=== PATIENT | male | born 1990 | race African-American/Black ===

== ENCOUNTER 2020-01-01 18:11 | Inpatient (IN) | payer SELFPAY ==
[~2020-01-01] VITALS: Ht 177.8 cm; Wt 60.4 kg
--- NOTE | 2020-01-01 18:15 | NUR ---
Patient to ER bed 1 to gown for evaluation. Side rails up.
[2020-01-01 18:16] VITALS: BP_SYST 128
--- NOTE | 2020-01-01 18:20 | NUR ---
Patient presented to ER C/O SOB. Patient is awake, alert, and oriented x4. Patient BIB BLS, afebrile, pain 4/10, denies N/V/D, retractions, dyspnea. Patient arrive on blow-by on 15 LPM non-rebreather mask & placed on pulse-ox monitor and gore inserter. Patient reports having cough, nasal congestion x1 day, and shortness of breath today. Patient reports Hx of asthma
--- NOTE | 2020-01-01 18:21 | NUR ---
ER Dr. Carson at bedside examining patient.
[2020-01-01] MEDS ORDERED: IPRATROPIUM/ALBUTEROL SULFATE 3 ML AMPUL.NEB (DUONEB) INH ONE ×3 (18:30→19:30)
[2020-01-01] MEDS ORDERED: NS 500 ML IV ONE (18:30)
[2020-01-01] MEDS ORDERED: MAGNESIUM SULFATE 50 ML IV ONE (18:30)
[2020-01-01] MEDS ORDERED: methylPREDNISolone SOD SUCC/PF 62.5 MG/ML VIAL IVP ONE (18:30)
--- NOTE | 2020-01-01 18:30 | NUR ---
# 20 gauge angiocath placed to right arm. Use of asceptic technique. Opsite placed over site. Blood return noted. Blood for lab drawn from site. Flushed with 10 cc of normal saline. No evidence of infiltration noted. Patient tolerated well.
[2020-01-01] MEDS ORDERED: IPRATROPIUM/ALBUTEROL SULFATE 3 ML AMPUL.NEB (DUONEB) ONE (18:34)
[2020-01-01 18:55] LABS: BASOPHILS % (AUTO) 0.3 % (0.0-2.0); EOSINOPHILS # (AUTO) 0.2 K/uL (0.0-0.4); EOSINOPHILS % (AUTO) 1.9 % (0.0-4.0); HEMATOCRIT 47.2 % (36-54); LYMPHOCYTES # (AUTO) 1.3 K/uL (1.0-5.5); LYMPHOCYTES % (AUTO) 13.9 % (20.5-51.5); MEAN CORPUSCULAR HEMOGLOBIN 27 pg (27-31); MEAN CORPUSCULAR HGB CONC 32 % (32-36); MEAN CORPUSCULAR VOLUME 86 fL (79.0-98.0); MONOCYTES # (AUTO) 0.5 K/uL (0.0-1.0); MONOCYTES % (AUTO) 5.4 % (1.7-9.3); NEUTROPHILS # (AUTO) 7.6 K/uL (1.8-7.7); NEUTROPHILS % (AUTO) 78.5 % (40.0-70.0); PLATELET COUNT (AUTO) 182 K/uL (130-430); RED BLOOD CELL COUNT(AUTO) 5.46 MIL/uL (4.2-6.2); RED CELL DISTRIBUTION WIDTH 15.9 % (9.0-15.0); WHITE BLOOD COUNT (AUTO) 9.7 K/uL (4.8-10.8)
[2020-01-01] MEDS ORDERED: KETOROLAC TROMETHAMINE 15 MG VIAL IVP ONE (19:00)
[2020-01-01 19:08] LABS: CALCIUM 9.3 mg/dL (8.4-11.0); CREATININE 1.04 mg/dL (0.55-1.30); POTASSIUM 3.7 mmol/L (3.5-5.1)
[2020-01-01 19:14] LABS: ALBUMIN 4.3 g/dL (3.4-4.8); TOTAL BILIRUBIN 1.1 mg/dL (0.0-1.0)
[2020-01-01] MEDS ORDERED: ALBUTEROL SULFATE 0.083% 2.5 MG/3 ML VIAL.NEB INH PRN (19:30)
[2020-01-01] MEDS ORDERED: IPRATROPIUM BROM 0.5 MG/2.5 ML VIAL.NEB (ATROVENT) INH PRN (19:30)
--- NOTE | 2020-01-01 19:45 | NUR ---
Report given to Vijay KOVACS
[2020-01-01] MEDS ORDERED: methylPREDNISolone SOD SUCC/PF 62.5 MG/ML VIAL IVP SCH (20:00)
[2020-01-01] MEDS ORDERED: AZITHROMYCIN 500 MG in NS 250 ML IV SCH (20:00)
[2020-01-01] MEDS ORDERED: LORazepam 2 MG/ML VIAL IVP ONE (20:45)
--- NOTE | 2020-01-01 20:45 | NUR ---
Spoke with regarding patient being extremely anxious. issued order for 1mg ativan now for agitation/anxiety.
[2020-01-01] MEDS ORDERED: cefTRIAXone 1 GM in D5W 50 ML IV SCH (21:00)
--- NOTE | 2020-01-01 21:00 | NUR ---
Pt vomiting x2 episodes.
[2020-01-01] MEDS ORDERED: LORazepam 2 MG/ML VIAL ONE (21:05)
--- NOTE | 2020-01-01 21:22 | NUR ---
Report Given to FERMÍN Lopez
[2020-01-01] MEDS ORDERED: ONDANSETRON HCL 4 MG/2 ML VIAL IVP ONE (21:30)
[2020-01-01] MEDS ORDERED: AZITHROMYCIN 500 MG/VIAL (ZITHROMAX) IV ONE (21:31)
[2020-01-01] MEDS ORDERED: ONDANSETRON HCL 4 MG/2 ML VIAL ONE (21:38)
[2020-01-01 21:51] VITALS: BP_SYST 123
[2020-01-01] MEDS ORDERED: cefTRIAXone 1 GM VIAL ONE ×2 (21:51)
--- NOTE | 2020-01-01 22:11 | NUR ---
APatient will be admitted to care of Dr. Méndez. Admitted to telemetry unit. Will go to room 109C. Belongings list completed. Complete and up to date summary report printed. SBAR report to be given at bedside with opportunity for questions.
--- NOTE | 2020-01-01 22:20 | NUR ---
ADMISSION NOTE Received patient from ER via [facility] under the care of Dr. Méndez. Patient admitted with diagnosis of Asthma. Patient is awake, alert, oriented X 4. Patient oriented to hospital room, call light, toileting, pain management and safety-teach back done. Patient informed that his nurse will be Triny KOVACS and that his room number is 109C. Call light within reach. Will continue to monitor patient condition.
[2020-01-01 22:29] VITALS: BP_SYST 135
--- NOTE | 2020-01-01 22:57 | NUR ---
PAGED PAGED DOCTOR JAGUAR
[2020-01-01] MEDS ORDERED: ACETAMINOPHEN 325 MG TABLET PO PRN (23:30)
[2020-01-01] MEDS ORDERED: LORazepam 1 MG TABLET PO PRN (23:30)
[2020-01-01] MEDS: ALBUTEROL SULFATE 0.083% 2.5 MG/3 ML VIAL.NEB INH SCH (23:35)
[2020-01-01] MEDS: IPRATROPIUM BROM 0.5 MG/2.5 ML VIAL.NEB (ATROVENT) INH SCH (23:35)
[2020-01-02] MEDS ORDERED: cefTRIAXone 1 GM IVPB PREMIX 50 ML IV ONE (00:17)
[2020-01-02] MEDS ORDERED: AZITHROMYCIN 500 MG/VIAL (ZITHROMAX) IV ONE (00:18)
--- NOTE | 2020-01-02 01:25 | NUR ---
Patient refused the tele monitor. Will continue to monitor.
[2020-01-02] MEDS: IPRATROPIUM BROM 0.5 MG/2.5 ML VIAL.NEB (ATROVENT) INH SCH (03:22)
[2020-01-02] MEDS: ALBUTEROL SULFATE 0.083% 2.5 MG/3 ML VIAL.NEB INH SCH (03:22)
--- NOTE | 2020-01-02 03:22 | NUR ---
[id number] Patient signed AMA form. Will be leaving hospital when his mother arrives. Addendum: 01/02/20 at 0325 by [facility] [place] [facility] [place] [employer] [phone] Patient signed the AMA form. Will be leaving the hospital when his mother arrives.
[2020-01-02 04:04] LABS: BENZODIAZEPINE, URINE POSITIVE (NEG <=150); CANNABINOID, URINE POSITIVE (NEG <=50); COCAINE, URINE POSITIVE (NEG <=150); OPIATE, URINE POSITIVE (NEG <=100)
[2020-01-02 04:05] LABS: BARBITURATE, URINE NEGATIVE (NEG <=200); METHAMPHETAMINES SCREEN,URINE NEGATIVE (NEG <=500); PHENCYCLIDINE SCREEN,URINE NEGATIVE (NEG <=25); UR TRICYCLIC ANTIDEPRESSANTS NEGATIVE (NEG <=300); URINE AMPHETAMINE NEGATIVE (NEG <=500); URINE METHADONE NEGATIVE (NEG <=200); URINE OXYCODONE SCREEN NEGATIVE (NEG <=100); URINE PROPOXYPHENE SCREEN NEGATIVE (NEG <=300)
== END 2020-01-02 03:10 | disposition left against medical advice (07) | DRG 203 ==
LOC: SED 18:11 → STU 19:49
PROVIDERS: ADMIT Internal Medicine Hospice and Palliative Medicine; ATTEND Internal Medicine Hospice and Palliative Medicine
DX: J45.901 Unspecified asthma with (acute) exacerbation (principal); F19.10 Other psychoactive substance abuse, uncomplicated; F17.210 Nicotine dependence, cigarettes, uncomplicated
CPT/HCPCS: 36415; 36600; 71045; 80053; 80307; 82803-TC; 85025; 87040-TC; 94640; 96365; 96375; 99291; G0378; J0456; J0696; J1885; J2060; J2405; J2930; J3475; J7050; J7613; J7620